=== PATIENT | female | born 1975 | race Caucasian/White ===

== ENCOUNTER 2020-04-01 14:18 | Emergency (ER) | payer MEDICAID, SELFPAY ==
[~2020-04-01] VITALS: Ht 165.1 cm; Wt 81.6 kg
--- NOTE | 2020-04-01 15:45 | NUR ---
call for pt, no answer
[2020-04-01 16:32] VITALS: BP 158/82
[2020-04-01] MEDS ORDERED: LACTATED RINGERS 1,000 ML IV ONE (16:40)
[2020-04-01] MEDS ORDERED: ONDANSETRON 4 MG/2 ML VIAL IVP SCH (17:00)
[2020-04-01] MEDS ORDERED: ACETAMINOPHEN 325 MG TAB PO SCH (17:00)
--- NOTE | 2020-04-01 17:14 | NUR ---
PATIENT BIBA FROM HOME FOR SOB/BODY ACHES . PT STATES SYMPTOMS STARTED THE DAY BEFORE NAMAN. N/V/D PRESENT AT THIS TIME; SKIN IS PINK/WARM/DIAPHORETIC; AAOX4 WITH EVEN AND STEADY GAIT; LUNGS CLEAR BL; HR NS TACHY; PT EXPERIENCING FEVER, CP, SOB, AND COUGH AT THIS TIME; PATIENT STATES PAIN OF 8/10 AT THIS TIME; VSS; PATIENT POSITIONED FOR COMFORT; HOB ELEVATED; BEDRAILS UP X2; BED DOWN. ER MD MADE AWARE OF PT STATUS.
[2020-04-01 17:28] LABS: BASOPHILS % (AUTO) 0.6 % (0.0-2.0); EOSINOPHILS # (AUTO) 0.1 K/uL (0-0.4); EOSINOPHILS % (AUTO) 1.5 % (0.0-4.0); HEMATOCRIT 47.5 % (36-48); HEMOGLOBIN 15.8 g/dL (12.0-16.0); LYMPHOCYTES # (AUTO) 0.7 K/uL (2.5-16.5); LYMPHOCYTES % (AUTO) 9.8 % (20.5-51.1); MEAN CORPUSCULAR HEMOGLOBIN 29 pg (27-31); MEAN CORPUSCULAR HGB CONC 33 g/dL (33-37); MEAN CORPUSCULAR VOLUME 85.5 fL (80-94); MONOCYTES # (AUTO) 0.4 K/uL (0.8-1.0); MONOCYTES % (AUTO) 5.3 % (1.7-9.3); NEUTROPHILS # (AUTO) 5.6 K/uL (1.8-7.7); NEUTROPHILS % (AUTO) 82.8 % (42.2-75.2); PLATELET COUNT (AUTO) 396 K/uL (140-450); RED BLOOD CELL COUNT(AUTO) 5.55 MIL/uL (4.20-5.40); RED CELL DISTRIBUTION WIDTH 15.5 % (11.6-13.7); WHITE BLOOD COUNT (AUTO) 6.7 K/uL (4.8-10.8)
--- NOTE | 2020-04-01 17:30 | NUR ---
PT SP02 IS 95% ON RA
--- NOTE | 2020-04-01 17:43 | NUR ---
PT UNABLE TO PROVIDE URINE SAMPLE AT THIS TIME
--- NOTE | 2020-04-01 17:54 | NUR ---
+ covid result-- critical value received from lab.
[2020-04-01 18:07] LABS: ALBUMIN 3.5 g/dL (3.4-5.0); ANION GAP 15.9 (8-16); CARBON DIOXIDE 23.4 mmol/L (21-32); CREATININE 1.1 mg/dL (0.6-1.3); POTASSIUM 3.3 mmol/L (3.5-5.1); TOTAL BILIRUBIN 0.5 mg/dL (0.0-1.0)
[2020-04-01] MEDS ORDERED: POTASSIUM CHLORIDE 10 MEQ TABER PO SCH (19:00)
--- NOTE | 2020-04-01 19:22 | NUR ---
RECEIVED REPORT FROM PETAR HEBERT FOR CONTINUATION OF CARE.
--- NOTE | 2020-04-01 19:24 | NUR ---
PER MD, OK TO DISCHARGE WITHOUT URINE SAMPLE.
--- NOTE | 2020-04-01 19:50 | NUR ---
IV removed, catheter intact and site benign. Applied folded 4x4 gauze and tape to stop bleeding.
[2020-04-01 19:53] VITALS: BP 139/62
--- NOTE | 2020-04-01 19:53 | NUR ---
Patient discharged with v/s stable. Written and verbal after care instructions given and explained. Patient alert, oriented and verbalized understanding of instructions. Ambulatory with steady gait. All questions addressed prior to discharge. ID band removed. Patient advised to follow up with PMD. Rx of tylenol & zofran given. Patient educated on indication of medication including possible reaction and side effects. Opportunity to ask questions provided and answered.
== END 2020-04-01 19:53 | disposition home or self-care (01) ==
LOC: MED 14:18
DX: U07.1 COVID-19 (principal); J12.89 Other viral pneumonia; F41.9 Anxiety disorder, unspecified; E87.4 Mixed disorder of acid-base balance; E87.6 Hypokalemia
CPT/HCPCS: 36415; 36600; 71045; 80053; 82803; 83605; 85025; 87040; 87426; 93005; 96361; 96374; 99285; J2405; J7120; U0003